=== PATIENT | male | born 1995 | race African-American/Black ===

== ENCOUNTER 2018-07-02 08:09 | Emergency (ER) | payer SELFPAY ==
[~2018-07-02] VITALS: Ht 182.9 cm; Wt 106.6 kg
[2018-07-02 08:30] VITALS: BP 133/76
--- NOTE | 2018-07-02 08:48 | RAD ---
EXAM: Left ankle, 3 views. HISTORY: Trauma. COMPARISON: None. FINDINGS: 3 views of the left ankle are obtained. There is no fracture, dislocation or subluxation. There is no osteochondral lesion. The ankle mortise is intact. The base of the fifth metatarsal is excluded from the [id number] on the lateral projection. There is a 1.9 cm cortical base sclerotic lesion within the lateral distal tibial metadiaphysis, the appearance of which favors a healed or healing fibrous cortical defect. IMPRESSION: 1. No acute osseous finding. Note is made at the base of the fifth metatarsal is excluded from the [id number] on the lateral projection. 2. Suspected healed or healing distal tibial fibrous cortical defect, of no clinical significance. Electronically signed by: Kelly Souza MD (07/02/2018 8:45 AM) [facility]
[2018-07-02] MEDS ORDERED: IBUP800T19 PO (09:14)
--- NOTE | 2018-07-02 09:14 | PHYS DOC ---
Past History Past Medical History: No Pertinent History Past Surgical History: Other Alcohol Use: None Drug Use: None Adult General Chief Complaint Chief Complaint: ANKLE PROBLEM HPI HPI Patient is a 23 year old male who presents with complaining of injury to left ankle. Patient states he twisted his left ankle yesterday and complaining of pain in lateral malleolus that getting worse with bearing weight. Patient denies other injuries and focal neurodeficit. Review of Systems Review of Systems Constitutional: Denies fever or chills [] Eyes: Denies change in visual acuity, redness, or eye pain [] HENT: Denies nasal congestion or sore throat [] Respiratory: Denies cough or shortness of breath [] Cardiovascular: No additional information not addressed in HPI [] GI: Denies abdominal pain, nausea, vomiting, bloody stools or diarrhea [] : Denies dysuria or hematuria [] Musculoskeletal: Denies back pain, reports joint pain [] Integument: Denies rash or skin lesions [] Neurologic: Denies headache, focal weakness or sensory changes [] Endocrine: Denies polyuria or polydipsia [] All other systems were reviewed and found to be within normal limits, except as documented in this note. Allergies Allergies Allergies Coded Allergies Type Severity Reaction Last Updated Verified No Known Drug Allergies 07/02/18 No Physical Exam Physical Exam Constitutional: Well developed, well nourished, no acute distress, non-toxic appearance. [] HENT: Normocephalic, atraumatic. Eyes: PERRLA, EOMI, conjunctiva normal, no discharge. [] Neck: Normal range of motion, no tenderness, supple, no stridor. [] Cardiovascular:Heart rate regular rhythm, no murmur [] Lungs & Thorax: Bilateral breath sounds clear to auscultation [] Skin: Warm, dry, no erythema, no rash. [] Back: No tenderness, no CVA tenderness. [] Extremities: Left ankle without deformity or edema or contusion, mild tenderness in lateral malleolus, no cyanosis, no clubbing, ROM intact, no edema. [] Neurologic: Alert and oriented X 3, normal motor function, normal sensory function, no focal deficits noted. [] Psychologic: Affect normal, judgement normal, mood normal. [] Current Patient Data Vital Signs Vital Signs Date Time Temp Pulse Resp B/P (MAP) Pulse Ox O2 Delivery O2 Flow Rate FiO2 07/02/18 08:30 98.3 63 18 98 Room Air EKG EKG [] Radiology/Procedures Radiology/Procedures [address] [address] IMAGING REPORT Signed PATIENT: DUNIA MOON ACCOUNT: [id number] : 1995 LOCATION: ER AGE: 23 SEX: M EXAM STATUS: REG ER ORD. PHYSICIAN: ZACH GARCIA MD REASON: injury PROCEDURE: ANKLE LEFT 3V EXAM: Left ankle, 3 views. HISTORY: Trauma. COMPARISON: None. FINDINGS: 3 views of the left ankle are obtained. There is no fracture, dislocation or subluxation. There is no osteochondral lesion. The ankle mortise is intact. The base of the fifth metatarsal is excluded from the [id number] on the lateral projection. There is a 1.9 cm cortical base sclerotic lesion within the lateral distal tibial metadiaphysis, the appearance of which favors a healed or healing fibrous cortical defect. IMPRESSION: 1. No acute osseous finding. Note is made at the base of the fifth metatarsal is excluded from the [id number] on the lateral projection. 2. Suspected healed or healing distal tibial fibrous cortical defect, of no clinical significance. Electronically signed by: Marilu Souza MD (07/02/2018 8:45 AM) [facility] DICTATED AND SIGNED BY: MARILU SOUZA MD DATE: 07/02/18 0844 CC: ZACH GARCIA MD; PCP,NO ~ Course & Med Decision Making Course & Med Decision Making Pertinent Imaging studies reviewed. (See chart for details) Evaluation of patient in ER showed 23-year-old male patient with injury to left ankle without abnormal finding in x-ray. Gel cast splint was applied by [employer] and patient instructed to avoid of bearing weight and follow up with his primary care physician. Dragon Disclaimer Dragon Disclaimer This electronic medical record was generated, in whole or in part, using a voice recognition dictation system. Departure Departure: Impression: Primary Impression: Left ankle sprain Disposition: HOME, SELF-CARE (at 0912) Condition: STABLE Referrals: PCP,NO (PCP) Patient Instructions: Ankle Sprain Additional Instructions: Apply ice on the affected area Follow-up with your primary care physician in 3-5 days Return to ER if not getting better Scripts Ibuprofen (IBUPROFEN) 800 Mg Tablet 800 MG PO TID PRN for PAIN, #30 TAB Prov: ZACH GARCIA MD 07/02/18 ZACH GARCIA MD Jul 02, 2018 09:14
== END 2018-07-02 09:31 | disposition home or self-care (01) ==
LOC: ER 08:09
DX: S93.402A Sprain of unspecified ligament of left ankle, initial encounter (principal); X50.1XXA Overexertion from prolonged static or awkward postures, initial encounter; Y93.89 Activity, other specified; Y92.89 Other specified places as the place of occurrence of the external cause; Y99.8 Other external cause status
CPT/HCPCS: 73610; 99284